=== PATIENT | female | born 1995 | race African-American/Black ===

== ENCOUNTER 2021-04-08 03:59 | Emergency (ER) | payer SELFPAY ==
[~2021-04-08] VITALS: Ht 160 cm; Wt 77.0 kg
[2021-04-08 04:02] VITALS: BP 132/84
[2021-04-08] MEDS ORDERED: IBUP-2030 MT (05:17)
[2021-04-08] MEDS ORDERED: AMOX-494 MT (05:17)
[2021-04-08] MEDS ORDERED: HYDR-4001 MT (05:17)
== END 2021-04-08 05:24 | disposition home or self-care (01) ==
LOC: ER 03:59
DX: K02.9 Dental caries, unspecified (principal); Z98.890 Other specified postprocedural states
CPT/HCPCS: 99283